=== PATIENT | female | born 1950 | race Caucasian/White ===

== ENCOUNTER 2017-08-11 08:00 | Outpatient (CLI) | payer OTHER | END 2017-08-11 08:08 | disposition home or self-care (01) | LOC: SONOGRAMA 08:00 | DX: E04.1 Nontoxic single thyroid nodule (principal) ==

== ENCOUNTER 2019-05-17 08:30 | Outpatient (CLI) | payer OTHER | END 2019-05-17 08:31 | disposition home or self-care (01) | LOC: SONOGRAMA 08:30 | DX: E04.2 Nontoxic multinodular goiter (principal) ==